=== PATIENT | female | born 1995 | race Two or more races ===

== ENCOUNTER 2023-11-23 10:32 | Outpatient (CLI) | payer OTHER | END 2023-11-23 10:48 | disposition home or self-care (01) | LOC: TOM 10:32 | PROVIDERS: ATTEND Urology | DX: N20.0 Calculus of kidney (principal) ==

== ENCOUNTER 2024-12-19 14:47 | Emergency (ER) | payer OTHER ==
[~2024-12-19] VITALS: Ht 160 cm; Wt 52.2 kg
[2024-12-19 16:36] LABS: BASO % 0.5 % (0.1-1.2); EOS # 0.25 (0.04-0.54); EOS % 2.7 % (0.7-7.0); LYMPH # 1.37 (1.18-3.74); LYMPH % 14.7 % (19.3-53.1); MEAN PLATELET VOLUME 11.10 fl (9.4-12.4); MONO # 1.26 (0.24-0.82); MONO % 13.5 % (4.7-12.5); NEUT # 6.39 (1.56-6.13); NEUT % 68.4 % (34.0-71.1); RED CELL DISTRIBUTION WIDTH 14.7 % (11.6-14.4)
[2024-12-19 17:11] LABS: URINE APPEARANCE Turbid; URINE BILIRRUBIN Small (NEGATIVE); URINE BLOOD Moderate; URINE COLOR Red; URINE GLUCOSE Negative (NEGATIVE); URINE KETONE Negative (NEGATIVE); URINE LEUKOCYTE Moderate; URINE NITRATE Negative; URINE UROBILINOGEN 0.2 E.U./dl
[2024-12-19 17:13] LABS: URINE BACTERIA 1349.9 uL (0.0-1933); URINE CAST 2.59 uL (0.0-1.40); URINE EPITHELIAL CELLS 33.0 uL (0.0-38.8); URINE RBC 5694.0 uL (0.0-20.8); URINE WBC 290.1 uL (0.0-23.2)
[2024-12-19 17:25] LABS: COVID-19 AG POSITIVE (NEGATIVE)
[2024-12-19 17:30] LABS: URINE PROTEIN 100 (NEGATIVE)
[2024-12-19 17:31] LABS: TYPE CELLS SQUAMOUS; URINE MUCUS SCANT
== END 2024-12-19 20:43 | disposition home or self-care (01) ==
LOC: ER 14:47
DX: U07.1 COVID-19 (principal); R30.0 Dysuria; J06.9 Acute upper respiratory infection, unspecified; N91.0 Primary amenorrhea